=== PATIENT | female | born 1940 | race Caucasian/White ===

== ENCOUNTER 2017-06-06 11:54 | Inpatient (IN) | payer MEDICARE ==
[~2017-06-06] VITALS: Ht 325.1 cm; Wt 67.1 kg
--- NOTE | 2017-06-06 12:10 | NUR ---
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 NOTED ANXIOUS, RESTLESS. SEEN BY [employer] MECHANICAL FOR EVAL. VSS. SAFETY AND COMFORT MEASURES PROVIDED. WILL MONITOR.
[2017-06-06] MEDS ORDERED: LORAZEPAM 1 MG TABLET PO ONE (13:00)
[2017-06-06] MEDS ORDERED: DOCUSATE SODIUM LIQ 100 MG/10 ML UDC XX ONE (13:00)
[2017-06-06] MEDS ORDERED: OLANZAPINE 5 MG TABLET PO ONE (13:00)
[2017-06-06] MEDS ORDERED: DOCUSATE SODIUM LIQ 100 MG/10 ML UDC ONE (13:03)
[2017-06-06 13:04] LABS: BASOPHILS # (AUTO) 0.1 /CMM (0.0-0.2); BASOPHILS % (AUTO) 2.5 % (0.0-2.0); EOSINOPHILS # (AUTO) 0.1 /CMM (0.0-0.7); EOSINOPHILS % (AUTO) 1.3 % (0.0-6.0); HEMATOCRIT 37 % (33-45); HEMOGLOBIN 12.9 g/dL (11.5-14.8); LYMPHOCYTES # (AUTO) 1.7 /CMM (0.8-4.8); LYMPHOCYTES % (AUTO) 28.6 % (20.0-44.0); MEAN CORPUSCULAR HEMOGLOBIN 32 PG (26.0-33.0); MEAN CORPUSCULAR HGB CONC 35 g/dl (31.0-36.0); MEAN CORPUSCULAR VOLUME 92 fL (82-100); MONOCYTES # (AUTO) 0.4 /CMM (0.1-1.30); MONOCYTES % (AUTO) 6.6 % (2.0-12.0); NEUTROPHILS # (AUTO) 3.6 /CMM (1.8-8.9); PLATELET COUNT (AUTO) 254 /CMM (150-450); RED BLOOD CELL COUNT(AUTO) 4.02 MIL/uL (4.0-5.2)
[2017-06-06] MEDS ORDERED: LORAZEPAM 1 MG TABLET ONE (13:05)
[2017-06-06] MEDS ORDERED: OLANZAPINE 5 MG TABLET ONE (13:05)
--- NOTE | 2017-06-06 13:05 | NUR ---
PT REFUSES TO GIVE URINE SAMPLE.
[2017-06-06 13:09] LABS: CALCIUM, SERUM 8.9 mg/dL (8.5-10.1); CARBON DIOXIDE 27 mmol/L (21-32); CHLORIDE 103 mmol/L (98-107); CREATININE 0.7 mg/dL (0.6-1.3); GLUCOSE 98 mg/dL (74-106); SODIUM SERUM 137 mmol/L (136-145); UREA NITROGEN, BLOOD 12 mg/dL (7-18)
[2017-06-06 13:14] LABS: ACETAMINOPHEN 1 ug/ml (10-30); ALANINE AMINOTRANSFERASE 16 U/L (12-78); ALBUMIN 3.2 g/dL (3.4-5.0); ALKALINE PHOSPHATASE 121 U/L (46-116); ASPARTATE AMINOTRANSFERASE 19 U/L (15-37); BILIRUBIN,DIRECT 0.1 mg/dL (0.0-0.2); BILIRUBIN,TOTAL 0.3 mg/dL (0.2-1.0); TOTAL PROTEIN, SERUM 7.1 g/dL (6.4-8.2)
[2017-06-06 13:15] LABS: ALCOHOL, BLOOD < 3 mg/dL (0-0); SALICYLATE 1.5 mg/dL (2.8-20.0)
[2017-06-06] MEDS ORDERED: LEVO100T9 PO (13:26)
[2017-06-06] MEDS ORDERED: PHEN100C4 PO (13:26)
[2017-06-06] MEDS ORDERED: PHEN50TA4 PO (13:26)
[2017-06-06] MEDS ORDERED: BENZ1TAB7 PO (13:26)
[2017-06-06] MEDS ORDERED: ZOLP5TAB8 PO (13:26)
[2017-06-06] MEDS ORDERED: METO25TA20 PO (13:26)
[2017-06-06] MEDS ORDERED: TRAZ-144 PO (13:26)
[2017-06-06] MEDS ORDERED: ACET-2605 PO (13:26)
--- NOTE | 2017-06-06 13:43 | NUR ---
PT TAKEN TO CT.
--- NOTE | 2017-06-06 14:18 | NUR ---
Adrien Brito, AUDIOLOGY TECHNICIAN ETA 1hr.
--- NOTE | 2017-06-06 15:30 | NUR ---
KLEBER HAIR LCSW AT BS FOR EVAL.
[2017-06-06 15:46] LABS: APPEARANCE,URINE Clear (CLEAR); BILIRUBIN,URINE Negative (NEGATIVE); BLOOD, URINE Trace-lysed Ery/uL (NEGATIVE); COLOR,URINE Yellow (YELLOW); KETONES,URINE Negative (NEGATIVE); LEUKOCYTE ESTERASE ,URINE Trace (NEGATIVE); NITRITE, URINE Negative (NEGATIVE); PROTEIN,URINE Negative (NEGATIVE); UGLUCOSE Negative (NEGATIVE); UROBILINOGEN,URINE 0.2 EU/dL (0.2)
[2017-06-06 15:52] LABS: BACTERIA,URINE Moderate /HPF (None Seen); SQUAMOUS EPITHELIAL CELL,UR Few /HPF (None Seen)
--- NOTE | 2017-06-06 16:30 | NUR ---
PT IS ASSIGNED TO GPS BED 218-1.
--- NOTE | 2017-06-06 17:28 | NUR ---
REPORT GIVEN TO JESSICA JAMIL FOR GPS.
--- NOTE | 2017-06-06 17:30 | NUR ---
PATIENT TRANSPORTED TO [facility], 218 VIA WHEELCHAIR. RN, TATIANNA TO PROVIDE COLBY.
[2017-06-06] MEDS ORDERED: ZOLPIDEM TARTRATE 5 MG TABLET PO PRN (18:00)
[2017-06-06] MEDS ORDERED: MAG HYDROX/AL HYDROX/SIMETH 30 ML UDC PO PRN (18:00)
[2017-06-06] MEDS ORDERED: MAGNESIUM HYDROXIDE 30 ML UDC PO PRN (18:00)
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
[2017-06-06 20:00] VITALS: BP 108/55
[2017-06-06] MEDS ORDERED: MISCELLANEOUS MED 1 EA EA PO PRN (20:30)
[2017-06-06] MEDS: CEPHALEXIN MONOHYDRATE 500 MG CAPSULE PO SCH (21:49)
[2017-06-06] MEDS ORDERED: ZOLPIDEM TARTRATE 5 MG TABLET PO SCH (22:00)
[2017-06-07] MEDS: LORAZEPAM 0.5 MG TABLET PO PRN ×2 (06:19→23:05)
[2017-06-07 07:00] LABS: ALANINE AMINOTRANSFERASE 23 U/L (12-78); ALBUMIN 3.6 g/dL (3.4-5.0); ALKALINE PHOSPHATASE 129 U/L (46-116); ASPARTATE AMINOTRANSFERASE 22 U/L (15-37); BILIRUBIN,TOTAL 0.3 mg/dL (0.2-1.0); CALCIUM, SERUM 9.2 mg/dL (8.5-10.1); CARBON DIOXIDE 26 mmol/L (21-32); CHLORIDE 104 mmol/L (98-107); CREATININE 0.8 mg/dL (0.6-1.3); GLUCOSE 91 mg/dL (74-106); POTASSIUM 3.9 mmol/L (3.5-5.1); SODIUM SERUM 141 mmol/L (136-145); UREA NITROGEN, BLOOD 14 mg/dL (7-18)
[2017-06-07 07:53] LABS: HDL CHOLESTEROL 63 mg/dL (40-60); TRIGLYCERIDES 96 mg/dL (30-150)
[2017-06-07 08:00] VITALS: BP 103/63
[2017-06-07 08:26] LABS: CHOLESTEROL 257 mg/dL (<200); LDL 172 mg/dL (0-99)
[2017-06-07] MEDS: CEPHALEXIN MONOHYDRATE 500 MG CAPSULE PO SCH ×2 (08:36→21:13)
[2017-06-07] MEDS: LEVOTHYROXINE SODIUM 100 MCG TABLET PO SCH (08:36)
[2017-06-07] MEDS: PHENYTOIN EXTENDED RELEASE 100 MG CAPSULE PO SCH ×3 (08:36→16:06)
[2017-06-07] MEDS: METOPROLOL TARTRATE 25 MG TABLET PO SCH ×2 (08:38→16:08)
[2017-06-07 08:53] LABS: PHENYTOIN (DILANTIN) 21.7 ug/ml (10.0-20.0)
--- NOTE | 2017-06-07 15:39 | NUR ---
PER MAREK FERRIS HAT CHECKER, HOLD TODAY'S DOSE OF DILANTIN. PHENYTOIN LEVEL IS 21.7. MAREK AWARE. WILL HOLD THE 5PM DOSE AND WILL RESUME TOMORROW.
[2017-06-07 16:00] VITALS: BP 132/54
[2017-06-07] MEDS: QUETIAPINE FUMARATE 25 MG TABLET PO SCH ×2 (16:08→21:13)
[2017-06-07 20:00] VITALS: BP 108/73
[2017-06-07] MEDS: ACETAMINOPHEN 325 MG TABLET PO PRN (21:14)
[2017-06-08] MEDS: LEVOTHYROXINE SODIUM 100 MCG TABLET PO SCH (07:57)
[2017-06-08] MEDS: PHENYTOIN EXTENDED RELEASE 100 MG CAPSULE PO SCH ×3 (08:01→17:13)
[2017-06-08] MEDS: CEPHALEXIN MONOHYDRATE 500 MG CAPSULE PO SCH ×2 (08:01→21:14)
[2017-06-08] MEDS: METOPROLOL TARTRATE 25 MG TABLET PO SCH ×2 (08:02→17:00)
[2017-06-08] MEDS: QUETIAPINE FUMARATE 25 MG TABLET PO SCH ×3 (08:02→21:15)
[2017-06-08 08:20] VITALS: BP 105/64
[2017-06-08 16:00] VITALS: BP 101/59
[2017-06-08 19:48] VITALS: BP 111/69
[2017-06-08] MEDS: LORAZEPAM 0.5 MG TABLET PO PRN (23:13)
[2017-06-09 08:00] VITALS: BP 100/59
[2017-06-09] MEDS: PHENYTOIN EXTENDED RELEASE 100 MG CAPSULE PO SCH ×3 (08:53→17:27)
[2017-06-09] MEDS: QUETIAPINE FUMARATE 25 MG TABLET PO SCH ×3 (08:53→22:01)
[2017-06-09] MEDS: CEPHALEXIN MONOHYDRATE 500 MG CAPSULE PO SCH ×2 (08:53→22:01)
[2017-06-09] MEDS: LEVOTHYROXINE SODIUM 100 MCG TABLET PO SCH (08:53)
[2017-06-09] MEDS: METOPROLOL TARTRATE 25 MG TABLET PO SCH ×2 (08:54→17:00)
--- NOTE | 2017-06-09 14:51 | NUR ---
Initial discharge Plan: [place] [id number] [address] [id number]; . Pt has agreed to discharge to [facility], [address] [address] [place] [address]; once she is stable. Eileen Gentile from [facility] reported that pt was accepted to their facility and when interviewing pt she agreed. SW will follow up to ensure pt is safely and adequately discharged.
[2017-06-09 15:59] VITALS: BP 106/71
--- NOTE | 2017-06-09 19:30 | NUR ---
GPS RN NOTE, RECEIVED PATIENT AWAKE AND IN BED, PATIENT HAS NO COMPLAINTS OR S/S OF PAIN AT THIS TIME. PATIENT IS DISPLAYING NO S/S OF APPARENT DISTRESS AT THIS TIME. PATIENT BREATHING IS UNLABORED WITH EQUAL RISE AND FALL OF THE CHEST. PATIENT IS ALERT AND ORIENTED X 2 ON ROOM AIR WITH A SPO2 OF 98%. PATIENT IS COMPLIANT WITH MEDICATION, ANXIOUS AT TIMES, PARANOID, COOPERATIVE, IRRITABLE AT TIMES, AND NEEDS REORIENTATION. PATIENT DENIES SUICIDE IDEATIONS AND HOMICIDAL IDEATIONS AT THIS TIME. PATIENT ASSISTED WITH TURNING AND REPOSITIONING Q2HR AND PRN FOR COMFORT AND CIRCULATION. PATIENT HAS NO NEEDS AT THIS TIME. PATIENT EDUCATED ON THE USE OF THE CALL GONCALVES. PATIENT SIDE RAILS ARE UP X 2, BED IS LOCKED AND LOW, AND I WILL CONTINUE TO MONITOR THIS PATIENT Q 15 MIN WITH THE HELP OF STAFF.
[2017-06-09 19:50] VITALS: BP 138/96
[2017-06-10 08:00] VITALS: BP 106/59
[2017-06-10] MEDS: METOPROLOL TARTRATE 25 MG TABLET PO SCH ×2 (08:57→16:56)
[2017-06-10] MEDS: PHENYTOIN EXTENDED RELEASE 100 MG CAPSULE PO SCH ×3 (08:57→16:56)
[2017-06-10] MEDS: LEVOTHYROXINE SODIUM 100 MCG TABLET PO SCH (08:57)
[2017-06-10] MEDS: QUETIAPINE FUMARATE 25 MG TABLET PO SCH ×3 (08:57→21:13)
[2017-06-10] MEDS: CEPHALEXIN MONOHYDRATE 500 MG CAPSULE PO SCH ×2 (08:57→21:13)
[2017-06-10 16:00] VITALS: BP 116/60
[2017-06-10] MEDS: LORAZEPAM 0.5 MG TABLET PO PRN (19:41)
[2017-06-10 20:03] VITALS: BP 112/67
[2017-06-10] MEDS: ATORVASTATIN 10 MG TABLET PO SCH (21:13)
[2017-06-11 09:10] VITALS: BP 121/64
[2017-06-11] MEDS: PHENYTOIN EXTENDED RELEASE 100 MG CAPSULE PO SCH ×3 (09:24→17:11)
[2017-06-11] MEDS: LEVOTHYROXINE SODIUM 100 MCG TABLET PO SCH (09:24)
[2017-06-11] MEDS: CEPHALEXIN MONOHYDRATE 500 MG CAPSULE PO SCH ×2 (09:24→21:15)
[2017-06-11] MEDS: QUETIAPINE FUMARATE 25 MG TABLET PO SCH ×3 (09:24→21:15)
[2017-06-11] MEDS: METOPROLOL TARTRATE 25 MG TABLET PO SCH ×2 (09:27→17:12)
[2017-06-11] MEDS: LORAZEPAM 0.5 MG TABLET PO PRN (13:19)
--- NOTE | 2017-06-11 13:20 | NUR ---
RN NOTE: PATIENT IS AGITATED AND ANXIOUS. WANTS TO GET TRANSFERRED TO [facility]. GAVE LORAZEPAM PRN.
[2017-06-11 16:00] VITALS: BP 124/64
[2017-06-11 20:06] VITALS: BP 109/58
[2017-06-11] MEDS: ATORVASTATIN 10 MG TABLET PO SCH (21:15)
[2017-06-11 23:00] VITALS: BP 112/64
[2017-06-12] MEDS: PHENYTOIN EXTENDED RELEASE 100 MG CAPSULE PO SCH ×3 (08:35→16:30)
[2017-06-12] MEDS: LEVOTHYROXINE SODIUM 100 MCG TABLET PO SCH (08:35)
[2017-06-12] MEDS: METOPROLOL TARTRATE 25 MG TABLET PO SCH ×2 (08:35→16:31)
[2017-06-12] MEDS: CEPHALEXIN MONOHYDRATE 500 MG CAPSULE PO SCH ×2 (08:35→21:16)
[2017-06-12] MEDS: QUETIAPINE FUMARATE 25 MG TABLET PO SCH ×3 (08:36→21:15)
[2017-06-12 08:51] VITALS: BP 104/56
[2017-06-12 16:00] VITALS: BP 100/59
[2017-06-12] MEDS: LORAZEPAM 0.5 MG TABLET PO PRN (17:20)
[2017-06-12 20:00] VITALS: BP 101/50
[2017-06-12] MEDS: ATORVASTATIN 10 MG TABLET PO SCH (21:16)
[2017-06-13 08:00] VITALS: BP 123/59
[2017-06-13] MEDS: PHENYTOIN EXTENDED RELEASE 100 MG CAPSULE PO SCH ×3 (08:14→17:00)
[2017-06-13] MEDS: CEPHALEXIN MONOHYDRATE 500 MG CAPSULE PO SCH (08:14)
[2017-06-13] MEDS: QUETIAPINE FUMARATE 25 MG TABLET PO SCH ×4 (08:14→21:12)
[2017-06-13] MEDS: LEVOTHYROXINE SODIUM 100 MCG TABLET PO SCH (08:14)
[2017-06-13] MEDS: METOPROLOL TARTRATE 25 MG TABLET PO SCH ×2 (08:15→17:00)
[2017-06-13 16:01] VITALS: BP 115/59
[2017-06-13 20:00] VITALS: BP 100/56
[2017-06-13] MEDS: ATORVASTATIN 10 MG TABLET PO SCH (21:12)
[2017-06-14] MEDS: LORAZEPAM 0.5 MG TABLET PO PRN ×3 (01:33→23:03)
--- NOTE | 2017-06-14 01:34 | NUR ---
PATIENT UP TO NURSE'S STATION, ANXIOUS, UNABLE TO SLEEP, ATIVAN 1 MG PO GIVEN.
--- NOTE | 2017-06-14 07:10 | NUR ---
RN NOTE PATIENT IN BED AWAKE. ALERT AND ORIENTED X2. DENIES ANT DISCOMFORT. BREATHING EVEN AND UNLABORED. DENIES SI, DENIES HI. WILL CONTINUE TO MONITOR.
[2017-06-14] MEDS: LEVOTHYROXINE SODIUM 100 MCG TABLET PO SCH (08:13)
[2017-06-14] MEDS: QUETIAPINE FUMARATE 25 MG TABLET PO SCH ×4 (08:13→23:02)
[2017-06-14] MEDS: PHENYTOIN EXTENDED RELEASE 100 MG CAPSULE PO SCH ×3 (08:13→17:06)
[2017-06-14] MEDS: METOPROLOL TARTRATE 25 MG TABLET PO SCH ×2 (08:14→17:00)
[2017-06-14 08:28] VITALS: BP 114/64
--- NOTE | 2017-06-14 10:34 | NUR ---
RN NOTE PATIENT AT THE NURSES STATION AND ANXIOUS. VERBAL CUES PROVIDED TO DECREASE ANXIETY LEVEL HOWEVER NOT EFFECTIVE. PRN ATIVAN GIVEN PER ORDER.
--- NOTE | 2017-06-14 11:00 | NUR ---
RN NOTE PATIENT WITH NO ANXIETY. PATIENT CALM.
[2017-06-14 16:00] VITALS: BP 109/64
--- NOTE | 2017-06-14 17:32 | NUR ---
RN NOTE PATIENT ALERT AND ORIENTED TO SELF AND PLACE. RESPIRATION REGULAR AND UNLABORED. DENIES SOB, PAIN AT THIS TIME. DENIES ANXIETY. PATIENT CALM AND COOPERATIVE. DENIES SI DENIES HI. PATIENT HAVING DINNER AT THIS TIME. PATIENT IS KEPT CLEAN, DRY AND COMFORTABLE. WILL ENDORSE TO OCC THER.
[2017-06-14 20:00] VITALS: BP 107/69
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
[2017-06-14] MEDS ORDERED: QUETIAPINE FUMARATE 100 MG TABLET ONE (22:57)
[2017-06-14] MEDS: ATORVASTATIN 10 MG TABLET PO SCH (23:00)
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
[2017-06-15 08:00] VITALS: BP 122/66
[2017-06-15] MEDS: METOPROLOL TARTRATE 25 MG TABLET PO SCH ×2 (08:07→16:03)
[2017-06-15] MEDS: QUETIAPINE FUMARATE 25 MG TABLET PO SCH ×4 (08:07→21:44)
[2017-06-15] MEDS: LEVOTHYROXINE SODIUM 100 MCG TABLET PO SCH (08:07)
[2017-06-15] MEDS: PHENYTOIN EXTENDED RELEASE 100 MG CAPSULE PO SCH ×3 (08:07→16:03)
[2017-06-15 16:00] VITALS: BP 111/62
[2017-06-15 20:45] VITALS: BP 120/53
[2017-06-15] MEDS: ATORVASTATIN 10 MG TABLET PO SCH (21:39)
[2017-06-16] MEDS: LEVOTHYROXINE SODIUM 100 MCG TABLET PO SCH (07:44)
[2017-06-16 08:12] VITALS: BP 111/60
[2017-06-16] MEDS: PHENYTOIN EXTENDED RELEASE 100 MG CAPSULE PO SCH ×3 (08:53→17:20)
[2017-06-16] MEDS: QUETIAPINE FUMARATE 25 MG TABLET PO SCH ×4 (08:54→21:29)
[2017-06-16] MEDS: METOPROLOL TARTRATE 25 MG TABLET PO SCH ×2 (09:00→17:00)
[2017-06-16 16:16] VITALS: BP_SYST 102; BP_DIAS 59; BP_DIAS 63
--- NOTE | 2017-06-16 19:30 | NUR ---
GPS RN NOTE, RECEIVED PATIENT AWAKE AND IN BED, PATIENT HAS NO COMPLAINTS OR S/S OF PAIN AT THIS TIME. PATIENT IS DISPLAYING NO S/S OF APPARENT DISTRESS AT THIS TIME. PATIENT BREATHING IS UNLABORED WITH EQUAL RISE AND FALL OF THE CHEST. PATIENT IS ALERT AND ORIENTED X 2 ON ROOM AIR WITH A SPO2 OF 97%. PATIENT IS COMPLIANT WITH MEDICATION, ANXIOUS AT TIMES, PARANOID, COOPERATIVE, FIXATED ON LEAVING, IRRITABLE AT TIMES, AND NEEDS REORIENTATION. PATIENT DENIES SUICIDE IDEATIONS AND HOMICIDAL IDEATIONS AT THIS TIME. PATIENT ASSISTED WITH TURNING AND REPOSITIONING Q2HR AND PRN FOR COMFORT AND CIRCULATION. PATIENT HAS NO NEEDS AT THIS TIME. PATIENT EDUCATED ON THE USE OF THE CALL GONCALVES. PATIENT SIDE RAILS ARE UP X 2, BED IS LOCKED AND LOW, AND I WILL CONTINUE TO MONITOR THIS PATIENT Q 15 MIN WITH THE HELP OF STAFF.
[2017-06-16 20:23] VITALS: BP 125/86
[2017-06-16] MEDS: ATORVASTATIN 10 MG TABLET PO SCH (21:29)
[2017-06-16] MEDS: TRAZODONE 50 MG TABLET PO PRN (23:06)
--- NOTE | 2017-06-16 23:06 | NUR ---
GPS RN NOTE, PATIENT HAS A COMPLAINT OF NOT BEING ABLE TO SLEEP AND IS REQUESTING TRAZODONE AT THIS TIME. PATIENT VITAL SIGN ARE STABLE. GAVE TRAZODONE 50 MG PO HS ORDERED. WILL REASSESS FOR INSOMNIA AND I WILL CONTINUE TO MONITOR THIS PATIENT.
[2017-06-17 08:00] VITALS: BP 102/65
[2017-06-17] MEDS: QUETIAPINE FUMARATE 25 MG TABLET PO SCH ×4 (08:57→21:13)
[2017-06-17] MEDS: LEVOTHYROXINE SODIUM 100 MCG TABLET PO SCH (08:57)
[2017-06-17] MEDS: METOPROLOL TARTRATE 25 MG TABLET PO SCH ×2 (08:58→17:00)
[2017-06-17] MEDS: PHENYTOIN EXTENDED RELEASE 100 MG CAPSULE PO SCH ×3 (08:58→17:23)
[2017-06-17 16:00] VITALS: BP 103/60
[2017-06-17 20:35] VITALS: BP 115/73
[2017-06-17] MEDS: ATORVASTATIN 10 MG TABLET PO SCH (21:13)
[2017-06-18] MEDS: TRAZODONE 50 MG TABLET PO PRN (00:38)
[2017-06-18 08:00] VITALS: BP 124/61
[2017-06-18] MEDS: QUETIAPINE FUMARATE 25 MG TABLET PO SCH ×4 (08:12→21:44)
[2017-06-18] MEDS: METOPROLOL TARTRATE 25 MG TABLET PO SCH ×2 (08:13→17:09)
[2017-06-18] MEDS: LEVOTHYROXINE SODIUM 100 MCG TABLET PO SCH (08:13)
[2017-06-18] MEDS: PHENYTOIN EXTENDED RELEASE 100 MG CAPSULE PO SCH ×3 (08:19→17:09)
[2017-06-18] MEDS: LORAZEPAM 0.5 MG TABLET PO PRN (12:26)
--- NOTE | 2017-06-18 12:35 | NUR ---
very agitated and given ativan 1 mg po with the help of social service.
[2017-06-18] MEDS: ACETAMINOPHEN 325 MG TABLET PO PRN (14:42)
--- NOTE | 2017-06-18 14:45 | NUR ---
given tylenol 650 mg po for chest pain-no other med ordered.
--- NOTE | 2017-06-18 15:19 | NUR ---
pt. c/o chest pain going to back, here-informed him rn to call medical dr.dr. rodriguez called,orders given.stat ekg and troponin ordered.
[2017-06-18 16:00] VITALS: BP 120/70
[2017-06-18] MEDS ORDERED: ASPIRIN 81 MG TAB.CHEW PO ONE (16:30)
--- NOTE | 2017-06-18 16:55 | NUR ---
dr. rodriguez called with troponin level and ekg results.
--- NOTE | 2017-06-18 17:08 | NUR ---
asa given as per orders.
[2017-06-18 20:42] VITALS: BP 99/47
[2017-06-18] MEDS: ATORVASTATIN 10 MG TABLET PO SCH (21:44)
[2017-06-19] MEDS: LEVOTHYROXINE SODIUM 100 MCG TABLET PO SCH (08:28)
[2017-06-19] MEDS: PHENYTOIN EXTENDED RELEASE 100 MG CAPSULE PO SCH ×2 (08:28→12:35)
[2017-06-19] MEDS: METOPROLOL TARTRATE 25 MG TABLET PO SCH (08:29)
[2017-06-19] MEDS: QUETIAPINE FUMARATE 25 MG TABLET PO SCH ×2 (08:29→12:35)
[2017-06-19 08:43] VITALS: BP 107/56
[2017-06-19] MEDS: LORAZEPAM 0.5 MG TABLET PO PRN (14:48)
[2017-06-19 16:32] VITALS: BP 101/69
--- NOTE | 2017-06-19 16:40 | NUR ---
GPS/RN PATIENT CLEARED FOR DISCHARGE TO SNF ([facility]) BY DR WREN AND DR MUNIZ. MEDICATIONS RECONCILED BY BOTH DR'S, MEDICATIONS, EXIT CARE AND AFTER CARE PLAN EXPLAINED TO PATIENT, VERBALIZED UNDERSTANDING. BELONGINGS RETURNED AND SIGNED FOR, ALL D/C PAPER WORK COSIGNED BY 2 RN, PATIENT REFUSED TO SIGN, PATIENT REFUSED D/C SKIN PHOTS. PATIENT DENIES SI/HI/AH UPON DISCHARGE, PSYCHIATRIC TREATMENT PLANS MET. REPORT GIVEN TO SANDRA AT FACILITY, LEFT UNIT, CALM, COOPERATIVE,STABLE CONDITION, NO DISTRESS NOTED WITH AMBULANCE TRANSPORT AT SIDE.
--- NOTE | 2017-06-20 09:54 | NUR ---
Discharge Plan: Patient will discharge to [facility], [address] [address] Room [address]; via ambulance (Trip # [id number]) at 4:00pm. Pt has been notified and is in agreement. Pt has no family and or friends to notify of her discharge. [facility]; [address] [address]; was also notified of pts discharge plan. Pts physicians at [facility] are as follows: Clamp Carrier Operator: Dr. Husam Sidhu, [address]. [address], [facility] [address]; and Psychiatrist: Dr. Parada, [address] [facility] [address] [place]. [address]; .
== END 2017-06-19 16:40 | DRG 885 ==
LOC: ER 12:01 → GPS 16:47
PROVIDERS: ADMIT Psychiatry & Neurology Psychiatry; ATTEND Nurse Practitioner Acute Care
DX: F29 Unspecified psychosis not due to a substance or known physiological condition (principal); G40.909 Epilepsy, unspecified, not intractable, without status epilepticus; E44.1 Mild protein-calorie malnutrition; F03.91 Unspecified dementia, unspecified severity, with behavioral disturbance; N39.0 Urinary tract infection, site not specified; I25.10 Atherosclerotic heart disease of native coronary artery without angina pectoris; I10 Essential (primary) hypertension; Z88.0 Allergy status to penicillin; Z88.2 Allergy status to sulfonamides; B96.89 Other specified bacterial agents as the cause of diseases classified elsewhere; E78.5 Hyperlipidemia, unspecified; F31.9 Bipolar disorder, unspecified; R91.8 Other nonspecific abnormal finding of lung field; F20.0 Paranoid schizophrenia; R07.89 Other chest pain
CPT/HCPCS: 36415; 70450-TC; 71250-TC; 72125-TC; 80048-TC; 80053-TC; 80061-TC; 80076-TC; 80185-TC; 80305; 81000-TC; 84484-TC; 85025-TC; 87081-TC; 87086-TC; A4606; G0480; Z7610